=== PATIENT | female | born 1975 | race African-American/Black ===

== ENCOUNTER 2017-12-27 22:13 | Emergency (ER) | payer MEDICAID, OTHER ==
[~2017-12-27] VITALS: Ht 167.6 cm; Wt 74.0 kg
[2017-12-27 23:20] VITALS: BP 111/80
== END 2017-12-27 23:30 | disposition home or self-care (01) ==
LOC: ER 22:13
DX: K08.89 Other specified disorders of teeth and supporting structures (principal); Z88.0 Allergy status to penicillin
CPT/HCPCS: 99283

== ENCOUNTER 2022-03-03 09:12 | Emergency (ER) | payer MEDICAID ==
[~2022-03-03] VITALS: Ht 167.6 cm; Wt 82.0 kg
[2022-03-03 09:20] VITALS: BP 146/71
== END 2022-03-03 15:28 | disposition home or self-care (01) ==
LOC: ER 09:12
DX: M79.604 Pain in right leg (principal); Z88.0 Allergy status to penicillin
CPT/HCPCS: 73590; 81025; 93971; 99284

== ENCOUNTER 2022-04-11 09:08 | Emergency (ER) | payer MEDICAID ==
[~2022-04-11] VITALS: Ht 167.6 cm; Wt 82.0 kg
[2022-04-11] MEDS ORDERED: ONDANSETRON HCL 4MG/2ML INJ IV STA (10:42)
[2022-04-11] MEDS ORDERED: SODIUM CHLORIDE 0.9% 1,000 ML IV ONE (10:45)
[2022-04-11 11:12] LABS: CLARITY URINE CLEAR (CLEAR); COLOR URINE YELLOW (YELLOW); KETONES URINE 1+ (NEGATIVE); LEUKOCYTE ESTERASE URINE NEGATIVE (NEGATIVE); NITRITE URINE NEGATIVE (NEGATIVE); OCCULT BLOOD URINE NEGATIVE (NEGATIVE); PROTEIN URINE NEGATIVE (NEGATIVE); SPECIFIC GRAVITY URINE 1.021 (1.005-1.030)
[2022-04-11 11:14] LABS: HEMATOCRIT. 37.2 % (36.0-48.0); HEMOGLOBIN. 12.4 g/dL (12.0-16.0); MEAN CORPUSCULAR HEMOGLOBIN 30.6 pg (28.0-32.0); MEAN CORPUSCULAR VOLUME 91.8 fL (81.0-99.0); MEAN PLATELET VOLUME 8.3 fl (7.4-10.4); PLATELET 308 x1000/uL (130-400); RED BLOOD CELL COUNT 4.05 mill/uL (4.2-5.4); RED CELL DISTRIBUTION WIDTH 14.4 % (11.6-14.6)
[2022-04-11 11:24] LABS: CHLORIDE 107 mEq/L (98-107)
[2022-04-11 11:27] LABS: HCG SCREEN NEGATIVE
[2022-04-11 11:34] LABS: ETHANOL BLOOD < 10 mg/dL
[2022-04-11 11:42] LABS: *AMPHETAMINES SCREEN URINE NEGATIVE (NEGATIVE); *BARBITURATES SCREEN URINE NEGATIVE (NEGATIVE); *BENZODIAZEPINES SCREEN URINE NEGATIVE (NEGATIVE); *COCAINE SCREEN URINE NEGATIVE (NEGATIVE); METHADONE URINE SCREEN NEGATIVE (NEGATIVE); OPIATES URINE SCREEN NEGATIVE (NEGATIVE); PHENCYCLIDINE URINE SCREEN NEGATIVE (NEGATIVE)
[2022-04-11 11:49] LABS: CANNABINOID URINE SCREEN PRESUMTIVE POSITIVE (NEGATIVE)
[2022-04-11 12:08] LABS: PLATELET ESTIMATE NORMAL
[2022-04-11] MEDS ORDERED: METOCLOPRAMIDE HCL 10MG/2ML VIAL IV ONE (12:15)
[2022-04-11] MEDS ORDERED: ONDA4TAB50 MT (12:31)
[2022-04-11 12:40] VITALS: BP 136/52
== END 2022-04-11 13:45 | disposition home or self-care (01) ==
LOC: ER 09:08
DX: R55 Syncope and collapse (principal); R11.2 Nausea with vomiting, unspecified; Z88.0 Allergy status to penicillin
CPT/HCPCS: 36415; 80053; 80305; 80320; 81003; 84703; 85025; 93005; 96361; 96374; 96375; 99284; J2405; J2765; J7030; G0480